=== PATIENT | female | born 1945 | race Caucasian/White ===

== ENCOUNTER 2017-10-10 16:17 | Inpatient (IN) | payer MEDICARE, OTHER ==
[~2017-10-10] VITALS: Ht 170.2 cm; Wt 52.2 kg
[2017-10-10] MEDS ORDERED: SODIUM BICARBONATE 8.4% INJ 50ML SYRINGE ONE ×2 (16:23→19:55)
[2017-10-10] MEDS ORDERED: SODIUM BICARBONATE 8.4 % INJ 50ML VIAL IV ONE (16:23)
[2017-10-10] MEDS ORDERED: NOREPINEPHRINE 8 MG/250ML KIT 250 ML IV ONE (16:36)
[2017-10-10] MEDS ORDERED: MIDAZOLAM DRIP 50 mg/50mL 50 ML IV ONE (16:40)
[2017-10-10] MEDS ORDERED: NOREPINEPHRINE 8 MG/250ML KIT 250 ML IV SCH (16:41)
[2017-10-10] MEDS ORDERED: MIDAZOLAM DRIP 50 mg/50mL 50 ML IV SCH ×2 (16:41→17:26)
[2017-10-10 17:02] LABS: Allen Test Modified; Base Excess 0.7 mmol/L (-2.0-2.0); Blood 02Sat 94.4 % (96-100); Blood COHb 0.3 % (0.5-1.5); Blood MetHb 0.1 % (0.0-1.5); HCO3 27.6 mmol/L (22-26.0); HHb 5.6 % (0.0-5.0); MODE AMBU BAG; PCO2 58.8 mmHg (35.0-45.0); PCO2(T) 58.8 mmHg (35.0-45.0); PO2 98.9 mmHg (80.0-100.0); PO2(T) 98.9 mmHg (80.0-100.0); Sample Type Arterial
[2017-10-10] MEDS ORDERED: PANTOPRAZOLE 40 MG/10 ML VIAL IV ONE ×2 (17:03→17:15)
[2017-10-10] MEDS ORDERED: FAMOTIDINE (10MG/ML) 2ML VL IV ONE ×2 (17:04→17:15)
[2017-10-10 17:06] LABS: Mean Corpuscular Hemoglobin 25.5 pg (28.0-32.0); Mean Corpuscular Hgb Conc. 30.2 g/dL (32.0-36.0); Mean Corpuscular Volume 84.5 fL (80.0-100.0); Mean Platelet Volume 7.6 fL (6.9-10.8)
[2017-10-10 17:07] LABS: Hematocrit 29.3 % (36.0-46.0); Hemoglobin 8.8 g/dL (12.2-16.2); Platelet Count (auto) 203 10^3/uL (140-450); White Blood Cell 13.1 10^3/uL (4.4-10.8)
[2017-10-10 17:09] LABS: Promyelocytes % 0
[2017-10-10 17:10] LABS: Albumin 1.6 g/dL (3.4-5.0); BUN/Creatinine Ratio 13.6; Bilirubin, Total 0.1 mg/dL (0.2-1.0); Calcium 7.5 mg/dL (8.5-10.1); Magnesium 2.8 mg/dL (1.6-2.6); Potassium 3.7 mmol/L (3.5-5.1)
[2017-10-10 17:12] LABS: INR 1.19 (0.9-1.15); Partial Thromboplastin Time 58.1 sec (22.64-33.71)
[2017-10-10] MEDS ORDERED: cefTRIAXone 1GM/10ml IVPUSH 10 ML IV ONE (17:15)
[2017-10-10] MEDS ORDERED: SODIUM CHLORIDE 0.9% 3,000 ML IV ONE (17:15)
[2017-10-10] MEDS ORDERED: PROPOFOL 100 ML IV SCH (17:26)
[2017-10-10] MEDS ORDERED: SODIUM CHLORIDE 0.9% 2,000 ML IV ONE (17:30)
[2017-10-10] MEDS ORDERED: SODIUM CHLORIDE 0.9% 1,000 ML IV SCH (17:40)
[2017-10-10 17:45] LABS: Metamyelocytes % 1; Myelocytes % 1; Reactive Lymphocytes 2
[2017-10-10] MEDS ORDERED: DEXTROSE (50%) 50ML SYRG IV PRN (17:45)
[2017-10-10] MEDS ORDERED: ONDANSETRON HCL 4 MG/2 ML VIAL IV PRN (17:45)
[2017-10-10] MEDS ORDERED: MORPHINE SULF INJ 2 MG/ML SYRINGE 1ML IV PRN ×4 (17:45→18:00)
[2017-10-10] MEDS ORDERED: VANCOMYCIN PER PHARMACY 0 MG IV SCH (17:45)
[2017-10-10] MEDS ORDERED: NITROGLYCERIN 0.4 MG SL TAB SL PRN (17:45)
[2017-10-10 17:46] LABS: Anisocytosis Slight; Burr Cells FEW; Microcytosis Slight; Ovalocytes FEW; Platelet Estimate Adequate
[2017-10-10 17:47] LABS: Hypochromia Moderate
[2017-10-10 17:55] VITALS: BP 103/58
[2017-10-10] MEDS ORDERED: InsuLIN REG 1unit/0.01ml Soln (100units/ml) SC SCH (18:00)
[2017-10-10] MEDS ORDERED: IPRATROPIUM BROM 0.5 MG/2.5ML INH SOL NEB SCH (18:00)
[2017-10-10] MEDS ORDERED: ALBUTEROL SULF 2.5 MG/0.5ML(0.5%) NEB SOLN NEB SCH (18:00)
[2017-10-10] MEDS ORDERED: PIPERACILLIN-TAZOB 3.375GM 50 ML IV SCH (18:00)
[2017-10-10] MEDS ORDERED: ACCU-CHEK COMFORT CURVE STRIP VI SCH (18:00)
[2017-10-10 18:05] LABS: Blood COHb 0.3 % (0.5-1.5); Blood MetHb 0.3 % (0.0-1.5); HCO3 13.5 mmol/L (22-26.0); HHb 9.9 % (0.0-5.0); MODE VENT - A/C; O2Hb 89.5 % (94.0-97.0); PCO2 37.5 mmHg (35.0-45.0); PCO2(T) 37.5 mmHg (35.0-45.0); PO2 78.9 mmHg (80.0-100.0); PO2(T) 78.9 mmHg (80.0-100.0); Sample Type Arterial; pH 7.173 (7.350-7.450)
[2017-10-10] MEDS ORDERED: VANCOMYCIN 750 MG in D5W 5% 250 ML IV ONE (19:00)
[2017-10-10] MEDS ORDERED: methylPREDNISolone SOD SUCC 125 MG/2 ML VL IV ONE (19:00)
[2017-10-10] MEDS ORDERED: SODIUM BICARBONATE 50ML VIAL 50 ML in SOD CHL 0.45% 1,000 ML IV SCH (19:00)
[2017-10-10 19:29] LABS: Urine Bilirubin Negative (Negative); Urine Blood 2+ /uL (Negative); Urine Color Yellow (Yellow); Urine Glucose 3+ mg/dL (Normal); Urine Ketone Negative (Negative); Urine Mucus FEW (None Seen); Urine Nitrite Negative (Negative); Urine RBC 416 /hpf (0 - 4); Urine Squamous Epithelial Cell MOD /hpf (<5); Urine Urobilinogen Normal (Negative); Urine pH 7.5 (5.0-8.0)
[2017-10-10 19:55] VITALS: BP 151/120
[2017-10-10 20:01] LABS: Hemoglobin 10.4 g/dL (12.2-16.2)
[2017-10-10 21:25] VITALS: BP 0/0
[2017-10-10] MEDS ORDERED: SODIUM BICARBONATE 8.4% INJ 50ML SYRINGE IV ONE (21:25)
[2017-10-10] MEDS ORDERED: AMIODARONE HCL (50 MG/ ML) 3 ML VIAL IV ONE (21:25)
[2017-10-10] MEDS ORDERED: EPINEPHrine HCL 1 MG/10 ML SYRG IV ONE (21:25)
[2017-10-10] MEDS ORDERED: CALCIUM CHLOR(10%) 100MG/ML 10ML SYRINGE IV ONE (21:25)
[2017-10-11] MEDS ORDERED: MORPHINE SULFATE 4 MG/ML SYRG ONE (04:50)
[2017-10-11] MEDS ORDERED: FAMOTIDINE (10MG/ML) 2ML VL IV SCH (10:00)
[2017-10-11] MEDS ORDERED: PANTOPRAZOLE 40 MG/10 ML VIAL IV SCH (10:00)
== END 2017-10-10 21:26 | disposition expired | DRG 871 ==
LOC: ER 16:17 → TELE 16:18
PROVIDERS: ADMIT Internal Medicine; ATTEND Internal Medicine
PROC: 5A1935Z Respiratory Ventilation, Less than 24 Consecutive Hours (ICD-10-PCS; principal; 2017-10-10)
PROC: 0BH17EZ Insertion of Endotracheal Airway into Trachea, Via Natural or Artificial Opening (ICD-10-PCS; 2017-10-10)
PROC: 5A12012 Performance of Cardiac Output, Single, Manual (ICD-10-PCS; 2017-10-10)
DX: A41.9 Sepsis, unspecified organism (principal); J96.91 Respiratory failure, unspecified with hypoxia; I46.9 Cardiac arrest, cause unspecified; J69.0 Pneumonitis due to inhalation of food and vomit; E43 Unspecified severe protein-calorie malnutrition; I47.2 Ventricular tachycardia; E11.21 Type 2 diabetes mellitus with diabetic nephropathy; D68.9 Coagulation defect, unspecified; N18.3 Chronic kidney disease, stage 3 (moderate); E11.22 Type 2 diabetes mellitus with diabetic chronic kidney disease; E11.65 Type 2 diabetes mellitus with hyperglycemia; E03.9 Hypothyroidism, unspecified; D63.8 Anemia in other chronic diseases classified elsewhere; E83.41 Hypermagnesemia; I49.01 Ventricular fibrillation; F41.9 Anxiety disorder, unspecified; Z88.5 Allergy status to narcotic agent
CPT/HCPCS: 36415; 36600; 51702; 71010; 80053; 81001; 82805; 82962; 83735; 84484; 85007; 85014; 85018; 85027; 85610; 85730; 87040; 87086; 92950; 94002; 99291; C9113; J1815; J2250; J2543; J3490; J7060